=== PATIENT | female | born 1990 | race Caucasian/White ===

== ENCOUNTER 2018-01-14 12:00 | Outpatient (CLI) | END 2018-01-14 16:10 | disposition home or self-care (01) ==

== ENCOUNTER 2018-02-08 19:42 | Outpatient (CLI) | END 2018-02-09 02:25 | disposition home or self-care (01) ==

== ENCOUNTER 2018-02-21 11:51 | Outpatient (CLI) | END 2018-02-21 15:13 | disposition home or self-care (01) ==

== ENCOUNTER 2018-02-28 11:59 | Outpatient (CLI) | END 2018-02-28 14:16 | disposition home or self-care (01) ==

== ENCOUNTER 2018-03-01 01:20 | Inpatient (IN) | END 2018-03-03 21:55 | disposition home or self-care (01) | DRG 775 ==